=== PATIENT | male | born 1960 | race Caucasian/White ===

== ENCOUNTER 2016-08-27 08:43 | Day surgery (SDC) | payer BC ==
[2016-08-27] MEDS ORDERED: EPINEPHrine 1:10,000 1 MG/10 ML Syringe ONE (08:46)
[2016-08-27] MEDS ORDERED: Sodium Chloride 0.9% 5 ML Syringe FLUSH PRN (09:00)
[2016-08-27] MEDS ORDERED: Lactated Ringers 1,000 ML IV SCH (09:00)
[2016-08-27] MEDS ORDERED: Midazolam 1 MG/ML 2 ML SDV ONE ×2 (09:52→10:51)
[2016-08-27] MEDS ORDERED: Propofol 200 MG/20 ML SDV ONE ×2 (09:52→10:51)
--- NOTE | 2016-08-27 11:09 | PCM.OPNOTE ---
- General Post-Op/Procedure Note Date of Surgery/Procedure: 08/27/16 Operative Procedure(s): Colonoscopy Findings: within normal limits. Primary Surgeon: Renae Brown Free Text/Narrative:: INFORMED CONSENT: Patient is here today for elective colonoscopy. All aspects of this procedure have been discussed with the patient. All possible complications also, including possibility of perforation, infection, pain, bleeding and unknown complications. In the event of perforation patient may need to have abdominal exploration, colon resection, colostomy and even was discussed. Anesthetic complications were handled by anesthesia department. The patient understands fully well. Patient did not have any further questions for me at the end of my interview. The patient wishes for me to proceed. PREOPERATIVE DIAGNOSIS/INDICATIONS: [Screening, family history of colon carcinoma] POSTOPERATIVE DIAGNOSIS: [negative] INSTRUMENT USED: Olympus videocolonoscope. ASA CLASSIFICATION: [2] ANESTHESIA: Continuous EKG, oximetry and intermittent blood pressure and respiratory monitoring were performed throughout the procedure. IV Versed and Fentanyl were administered. PROCEDURE PERFORMED: Colonoscopy POSITIONS OF PATIENT: Left lateral. RECTUM: Normal. SIGMOID COLON: Normal. DESCENDING COLON: Normal. SPLENIC FLEXURE: Normal. TRANSVERSE COLON: Normal. HEPATIC FLEXURE: Normal. ASCENDING COLON: Normal. CECUM: Normal. ILEOCECAL VALVE: Normal. BIOPSY: None. TOLERANCE: Excellent. COMPLICATIONS: None.
[2016-08-27 12:08] VITALS: BP 152/67
== END 2016-08-27 12:00 | disposition home or self-care (01) ==
LOC: KA.SDS 08:43
PROVIDERS: ATTEND Family Medicine
DX: Z12.11 Encounter for screening for malignant neoplasm of colon (principal); E78.5 Hyperlipidemia, unspecified; E78.00 Pure hypercholesterolemia, unspecified; R73.9 Hyperglycemia, unspecified; F41.9 Anxiety disorder, unspecified; I25.10 Atherosclerotic heart disease of native coronary artery without angina pectoris; Z79.82 Long term (current) use of aspirin; Z79.899 Other long term (current) drug therapy
CPT/HCPCS: J2250; J2704; J7120

== ENCOUNTER 2017-01-07 20:34 | Emergency (ER) | payer BC ==
[2017-01-07] MEDS ORDERED: Lidocaine 1% 20 ML MDV ONE (20:53)
[2017-01-07] MEDS ORDERED: Lidocaine 2% 5 ML SDV ONE (21:15)
[2017-01-07] MEDS ORDERED: Lidocaine 1% 20 ML MDV INJECT ONE (21:15)
[2017-01-07] MEDS ORDERED: Lidocaine 2% 5 ML SDV INJECT ONE (21:20)
[2017-01-07 21:29] VITALS: BP 155/67
--- NOTE | 2017-01-07 21:29 | EDM.PDOC ---
ED HPI GENERAL MEDICAL PROBLEM - General Chief Complaint: Laceration Stated Complaint: LEFT FINGER LACERATION Time Seen by Provider: 01/07/17 21:00 Source of Information: Reports: Patient History Limitations: Reports: No Limitations - History of Present Illness INITIAL COMMENTS - FREE TEXT/NARRATIVE: 56 YO WM presents to ER complaining of left index finger laceration from a sharp piece of metal striking his finger while drill through it. Pt has subungal hematoma as well. Onset: Today Onset Date: 01/07/17 Onset Time: 20:25 Duration: Hour(s): (1) Location: Reports: Upper Extremity, Left Quality: Reports: Ache Severity: Mild Improves with: Reports: None Worsens with: Reports: None Associated Symptoms: Reports: No Other Symptoms - Related Data Allergies Allergy/AdvReac Type Severity Reaction Status Date / Time No Known Allergies Allergy Verified 08/27/16 08:57 Home Meds: Home Meds Aspirin 325 mg PO DAILY 09/19/13 [History] Metoprolol Succinate [Toprol XL] 25 mg PO DAILY 09/19/13 [History] Rosuvastatin Calcium [Crestor] 20 mg PO DAILY 09/19/13 [History] ALPRAZolam [Xanax] 0.25 mg PO Q12H PRN 08/24/16 [History] Triamcinolone Acetonide [Triamcinolone Acetonide 0.1% Crm] 15 gm TOP TID PRN 04/02 [History] Past Medical History HEENT History: Reports: None Respiratory History: Reports: None Gastrointestinal History: Reports: None Genitourinary History: Reports: None Musculoskeletal History: Reports: None Neurological History: Reports: None Psychiatric History: Reports: Anxiety Endocrine/Metabolic History: Reports: None Hematologic History: Reports: None Immunologic History: Reports: None Oncologic (Cancer) History: Reports: None Dermatologic History: Reports: None - Infectious Disease History Infectious Disease History: Reports: None - Past Surgical History Cardiovascular Surgical History: Reports: Coronary Artery Bypass, Other (See Below) Social & Family History - Tobacco Use Smoking Status *Q: Never Smoker - Caffeine Use Caffeine Use: Reports: Soda - Recreational Drug Use Recreational Drug Use: No ED ROS GENERAL - Review of Systems Review Of Systems: See Below Constitutional: Reports: No Symptoms HEENT: Reports: No Symptoms Respiratory: Reports: No Symptoms Cardiovascular: Reports: No Symptoms Endocrine: Reports: No Symptoms GI/Abdominal: Reports: No Symptoms : Reports: No Symptoms Musculoskeletal: Reports: No Symptoms Skin: Reports: Wound (3cm laceration to distal index finger) Neurological: Reports: No Symptoms Psychiatric: Reports: No Symptoms ED EXAM, SKIN/RASH Exam: See Below Exam Limited By: No Limitations General Appearance: Alert, WD/WN, No Apparent Distress Neck: Normal Inspection, Supple, Non-Tender, Full Range of Motion Respiratory/Chest: No Respiratory Distress, Lungs Clear, Normal Breath Sounds, No Accessory Muscle Use, Chest Non-Tender Cardiovascular: Normal Peripheral Pulses, Regular Rate, Rhythm, No Edema, No Gallop, No JVD, No Murmur, No Rub GI/Abdominal: Normal Bowel Sounds, Soft, Non-Tender, No Organomegaly, No Distention, No Abnormal Bruit, No Mass Back Exam: Normal Inspection, Full Range of Motion, NT Extremities: Normal Inspection, Normal Range of Motion, Non-Tender, No Pedal Edema, Normal Capillary Refill Neurological: Alert, Oriented, CN II-XII Intact, Normal Cognition, Normal Gait, Normal Reflexes, No Motor/Sensory Deficits Psychiatric: Normal Affect, Normal Mood Skin: Wound/Incision (3cm distal index finger laceration) ED SKIN PROCEDURES - Laceration/Wound Repair Left Distal Finger Lac/Wound length In cm: 3 Appearance: Superficial Distal NVT: Neuro & Vascular Intact Anesthetic Type: Digital Local Anesthesia - Lidocaine (Xylocaine): 1% Plain Local Anesthetic Volume: Other (10cc) Skin Prep: Providone-Iodine (Betadine), Saline Exploration/Debridement/Repair: Wound Explored Closed with: Sutures Suture Size: 4-0 # of Sutures: 3 Suture Type: Nylon, Interrupted Tetanus Status Addressed: Yes Complications: No Course - Orders/Labs/Meds Meds: Medications Discontinued Medications Generic Name Dose Route Start Last Admin Trade Name [place] PRN Reason Stop Dose Admin Lidocaine Confirm 01/07/17 21:15 Xylocaine-Mpf 2% Administered 01/07/17 21:16 Dose 5 ml .ROUTE .STK-MED ONE Lidocaine HCl Confirm 01/07/17 20:53 Xylocaine 1% Administered 01/07/17 20:54 Dose 20 ml .ROUTE .STK-MED ONE - Radiology Interpretation Free Text/Narrative:: Xray- NAD Departure - Departure Time of Disposition: 21:31 Disposition: Home, Self-Care 01 Condition: Good Clinical Impression: Laceration of finger Qualifiers: Encounter type: initial encounter Finger: index finger Foreign body presence: without foreign body Laterality: left Hematoma, subungual, finger, left Qualifiers: Encounter type: initial encounter Qualified Code(s): S60.10XA - Contusion of unspecified finger with damage to nail, initial encounter - Discharge Information Instructions: Stitches, [place], or Adhesive Wound Closure, [id number], Nail Bed Injury, [id number] Referrals: Ni Dunn PA-C [Primary Care Provider] - Forms: ED Department Discharge - Assessment/Plan Assessment:: 1. 3cm laceration to distal index finger 2. subungal hematoma- electric caudary pen used Plan: 1. discharge home 2. wound care instructions 3. suture removal in 7-10 days 4. return to ER for worsening symptoms
== END 2017-01-07 21:45 | disposition home or self-care (01) ==
LOC: KA.ED 20:34
DX: S61.311A Laceration without foreign body of left index finger with damage to nail, initial encounter (principal); F41.9 Anxiety disorder, unspecified; Z79.82 Long term (current) use of aspirin; Z79.899 Other long term (current) drug therapy; Z95.1 Presence of aortocoronary bypass graft; W26.8XXA Contact with other sharp object(s), not elsewhere classified, initial encounter
CPT/HCPCS: 12002; 73140-F1; 99283

== ENCOUNTER 2024-03-05 19:41 | Emergency (ER) | payer BC ==
[2024-03-05 20:05] VITALS: BP 163/91; PULSE 66
[2024-03-05] MEDS ORDERED: Naloxone 0.4 MG/ML SDV IVPUSH PRN (20:17)
[2024-03-05] MEDS: HYDROmorphone 1 MG/ML Syringe IM ONE (20:20)
== END 2024-03-05 20:52 | disposition home or self-care (01) ==
LOC: KA.ED 19:41
DX: S62.617A Displaced fracture of proximal phalanx of left little finger, initial encounter for closed fracture (principal); I25.2 Old myocardial infarction; E78.00 Pure hypercholesterolemia, unspecified; Z79.82 Long term (current) use of aspirin; Z79.899 Other long term (current) drug therapy; W19.XXXA Unspecified fall, initial encounter
CPT/HCPCS: 26725; 73140-F4; 96372; 99283-25; J1170